=== PATIENT | female | born 1975 | race Caucasian/White ===

== ENCOUNTER 2017-03-04 17:16 | Emergency (ER) | payer MEDICAID ==
[~2017-03-04] VITALS: Wt 62.0 kg
[2017-03-04] MEDS ORDERED: KETOROLAC 30 MG INJ IM STA (17:47)
[2017-03-04] MEDS ORDERED: DEXAMETHASONE 10 MG/ML 1 ML INJ IM ONE (18:00)
[2017-03-04] MEDS ORDERED: CYCL-319 PO (18:18)
[2017-03-04] MEDS ORDERED: NAPR-260 PO (18:18)
--- NOTE | 2017-03-11 18:21 | ERD ---
ER Documentation Chief Complaint Chief Complaint BACK PAIN INTERMITTENT X YEARS HPI Patient is a 41-year-old female presenting to the emergency room with complaints of intermittent lower back pain for 10 years. She feels radiation down bilateral legs. She feels cramping in her left leg. Patient is taking [id number] medication with mild relief of symptoms. She denies loss of bowel or bladder function, new injuries, or other symptoms currently. ROS All systems reviewed and are negative except as per history of present illness. Medications Home Meds Active Scripts Cyclobenzaprine Hcl* (Cyclobenzaprine Hcl*) 10 Mg Tablet, 10 MG PO TID, #15 TAB Prov:MIGUEL WALLACE PA-C 03/04/17 Naproxen* (Naprosyn*) 500 Mg Tablet, 500 MG PO BID Y for PAIN AND/OR INFLAMMATION, #30 TAB Prov:MIGUEL WALLACE PA-C 03/04/17 Allergies Allergies: Coded Allergies: Penicillins (Verified Allergy, Unknown, 04/14/07) PMhx/Soc Hx Alcohol Use: No Hx Substance Use: No Hx Tobacco Use: No Physical Exam Physical Exam Const: Nontoxic, well-appearing female in no acute distress. Head: Atraumatic Eyes: Normal Conjunctiva ENT: Normal External Ears, Nose and Mouth. Neck: Full range of motion..~ No meningismus. There is palpation of the paraspinal muscles of the cervical spine on the left. Skin: No petechiae or rashes Back: No midline or flank tenderness. Patient has tenderness palpation of the paraspinal muscles of the lumbar spine. Ext: No cyanosis, or edema Neur: Awake and alert Psych: Normal Mood and Affect Results 24 hrs Current Medications Medications (Trade) Dose Ordered Sig/Indu Route PRN Reason Start Time Stop Time Status Last Admin Dose Admin Dexamethasone (Decadron) 10 mg ONCE ONCE IM 03/04/17 18:00 03/04/17 18:01 DC 03/04/17 18:18 Ketorolac Tromethamine (Toradol) 30 mg ONCE STAT IM 03/04/17 17:47 03/04/17 17:49 DC 03/04/17 18:17 Procedures/MDM 41-year-old female presents to the emergency department with complaints of neck and back pain. History and physical examination consistent with cervical radiculopathy and lumbar back pain with sciatica. The patient was treated in the department with IM medication and she was feeling improved prior to discharge. Low suspicion for cauda equina, epidural abscess, or other emergent conditions. Patient agreed with the discharge plan a diagnosis. Pt/family in agreement with discharge plan/diagnosis. Pt/family advised to return immediately with any new or worsening symptoms. Follow-up with primary care physician within the next 1-2 days. Disclaimer: Inadvertent spelling and grammatical errors are likely due to EHR/ dictation software use and do not reflect on the overall quality of patient care. Also, please note that the electronic time recorded on this note does not necessarily reflect the actual time of the patient encounter. Departure Diagnosis: Primary Impression: Back pain with sciatica Additional Impression: Cervical radiculopathy Condition: Fair Patient Instructions: Radiculopathy, Cervical, Back Pain W/ Sciatica Referrals: [facility] YOU HAVE RECEIVED A MEDICAL SCREENING EXAM AND THE RESULTS INDICATE THAT YOU DO NOT HAVE A CONDITION THAT REQUIRES URGENT TREATMENT IN THE EMERGENCY DEPARTMENT. FURTHER EVALUATION AND TREATMENT OF YOUR CONDITION CAN WAIT UNTIL YOU ARE SEEN IN YOUR DOCTORS OFFICE WITHIN THE NEXT 1-2 DAYS. IT IS YOUR RESPONSIBILITY TO MAKE AN APPOINTMENT FOR FOLOW-UP CARE. IF YOU HAVE A PRIMARY DOCTOR --you should call your primary doctor and schedule an appointment IF YOU DO NOT HAVE A PRIMARY DOCTOR YOU CAN CALL OUR PHYSICIAN REFERRAL HOTLINE AT IF YOU CAN NOT AFFORD TO SEE A PHYSICIAN YOU CAN CHOSE FROM THE FOLLOWING [facility] [address] [facility] [facility] [address] [facility] [facility] [address] [facility] [address] [facility]. [facility] [address] [facility]. [facility]. [address] Additional Instructions: No mas mejor en 2-3 morton, regresar. Mas peor en 24 horas, regresear rapidamente. Ir a doctor primario en 1-2 morton. [facility] cuando [facility]y [facility]amento. MIGUEL WALLACE PA-C Mar 11, 2017 18:21
== END 2017-03-04 18:27 | disposition home or self-care (01) ==
LOC: FTE 17:16
DX: M54.42 Lumbago with sciatica, left side (principal); M54.41 Lumbago with sciatica, right side; M54.12 Radiculopathy, cervical region
CPT/HCPCS: 96372; J1100; J1885; Z7502

== ENCOUNTER 2018-02-09 20:04 | Emergency (ER) | END 2018-02-09 22:06 | disposition home or self-care (01) ==

== ENCOUNTER 2018-03-28 22:28 | Emergency (ER) | END 2018-03-29 05:46 | disposition home or self-care (01) ==